=== PATIENT | female | born 1960 | race Caucasian/White ===

== ENCOUNTER → 2018-09-04 09:45 | Outpatient (CLI) | payer OTHER, MEDICAID, SELFPAY ==
[2018-09-04 10:36] LABS: Alanine Aminotransferase 28 IU/L (9-52); Albumin 4.4 g/dL (3.5-5.0); Albumin Globulin Ratio 1.7 (1.0-2.8); Alkaline Phosphatase 73 U/L (38-126); Aspartate Aminotransferase 21 IU/L (14-36); BUN Creatinine Ratio 34.3 (6-22); Bilirubin Total 0.8 mg/dL (0.2-1.3); Blood Urea Nitrogen 24 mg/dL (7-17); Calcium 9.9 mg/dL (8.4-10.2); Carbon Dioxide 29 mmol/L (22-32); Chloride 104 mmol/L (98-107); Cholesterol 210 mg/dL (140-199); Estimated Glomerular Filt Rate > 60.0 mL/min (>60); Globulin 2.6 g/dL (1.7-4.1); Glucose 105 mg/dL (80-110); HDL Cholesterol 77 mg/dL (40-60); HEMOLYSIS < 15 (0-50); LDL Cholesterol Calculated 106 mg/dL (<100); Potassium 4.8 mmol/L (3.4-5.1); Sodium 144 mmol/L (137-145); Triglycerides 134 mg/dL (35-150); Uric Acid 4.3 mg/dL (2.5-6.2)
== END ==
PROVIDERS: PCP Physician Assistant; Visit Provider Physician Assistant
DX: E78.5 Hyperlipidemia, unspecified (principal); M10.9 Gout, unspecified
CPT/HCPCS: 36415; 80053; 80061; 84550

== ENCOUNTER → 2019-07-29 11:55 | Outpatient (CLI) | payer OTHER, SELFPAY ==
--- NOTE | 2019-07-29 11:56 | DI.RAD.S_ITS ---
PROCEDURE: XR ANKLE RT MIN 3V INDICATIONS: right foot and ankle pain after fall TECHNIQUE: 3 views of the ankle were acquired. COMPARISON: , [facility], XR FOOT RT MIN 3V, 07/29/2019, 11:58. , [facility], ANKLE 3 VIEWS RIGHT, 07/17/2017, 8:31. FINDINGS: Bones: Minimally displaced distal fibular tip fracture. Soft tissues: Lateral malleolar soft tissue edema. IMPRESSION: Minimally displaced distal fibular tip fracture with adjacent edema. Dictated by: Tanika Rodriguez M.D. on 07/29/2019 at 12:17 Approved by: Tanika Rodriguez M.D. on 07/29/2019 at 12:18
--- NOTE | 2019-07-29 11:56 | DI.RAD.S_ITS ---
PROCEDURE: XR FOOT RT MIN 3V INDICATIONS: r foot pain TECHNIQUE: 3 views of the foot were acquired. COMPARISON: [facility], CR, ANKLE 3 VIEWS RIGHT, 07/17/2017, 8:31. [facility], CR, XR ANKLE RT MIN 3V, 07/29/2019, 11:57. FINDINGS: Bones: Distal fibular tip fracture is better visualized on ankle x-ray of 07/29/19. Soft tissues: Mild lateral malleolar soft tissue edema. Achilles tendon appears normal. IMPRESSION: Please see x-ray report for further details of the distal fibular tip fracture. Dictated by: Tanika Rodriguez M.D. on 07/29/2019 at 12:19 Approved by: Tanika Rodriguez M.D. on 07/29/2019 at 12:20
== END ==
PROVIDERS: PCP Physician Assistant; Visit Provider Physician Assistant
DX: M25.571 Pain in right ankle and joints of right foot (principal); M79.671 Pain in right foot; S82.831A Other fracture of upper and lower end of right fibula, initial encounter for closed fracture; W19.XXXA Unspecified fall, initial encounter
CPT/HCPCS: 73610; 73630

== ENCOUNTER → 2020-01-01 10:08 | Outpatient (CLI) | payer OTHER, SELFPAY ==
[2020-01-01 11:41] LABS: Add Manual Diff / Slide Review NO; Basophils Absolute Auto 0 /uL (0-100); Basophils Percent Auto 0.7 % (0-2); Eosinophils Absolute Auto 200 /uL (0-450); Eosinophils Percent Auto 4.5 % (2-4); Hematocrit 35.9 % (36-46); Hemoglobin 12.3 g/dL (12.0-16.0); Lymphocytes Absolute Auto 1600 /uL (1100-4500); Lymphocytes Percent Auto 35.7 % (25-40); Mean Corpuscular HGB Conc 34.2 % (30-36); Mean Corpuscular Volume 87.7 fL (80-100); Monocytes Absolute Auto 300 /uL (0-900); Monocytes Percent Auto 7.8 % (3-14); Neutrophils Absolute Auto 2300 /uL (1500-7000); Neutrophils Percent Auto 51.3 % (50-75); Platelet Count 208 X10^3/uL (150-400); Red Blood Cell Count 4.09 X10^6/uL (4.0-5.2); Red Cell Distribution Width 13.3 % (11.6-14.8); White Blood Cell Count 4.4 X10^3/uL (4.5-11.0)
[2020-01-01 11:49] LABS: Alanine Aminotransferase 20 IU/L (<35); Albumin 4.6 g/dL (3.5-5.0); Albumin Globulin Ratio 1.5 (1.0-2.8); Alkaline Phosphatase 87 U/L (38-126); Aspartate Aminotransferase 25 IU/L (14-36); Bilirubin Total 0.8 mg/dL (0.2-1.3); Blood Urea Nitrogen 21 mg/dL (7-17); Calcium 9.6 mg/dL (8.4-10.2); Carbon Dioxide 26 mmol/L (22-32); Chloride 104 mmol/L (98-107); Cholesterol 235 mg/dL (140-199); Estimated Glomerular Filt Rate > 60.0 mL/min (>60); Globulin 3.1 g/dL (1.7-4.1); Glucose 107 mg/dL (80-110); HDL Cholesterol 71 mg/dL (40-60); HEMOLYSIS < 15 (0-50); LDL Cholesterol Calculated 141 mg/dL (<100); Potassium 3.8 mmol/L (3.4-5.1); Sodium 140 mmol/L (137-145); Total Protein 7.7 g/dL (6.3-8.2); Triglycerides 113 mg/dL (35-150)
== END ==
PROVIDERS: PCP Nurse Practitioner Family; Referring Provider Nurse Practitioner Family; Visit Provider Nurse Practitioner Family
DX: Z00.00 Encounter for general adult medical examination without abnormal findings (principal); Z13.0 Encounter for screening for diseases of the blood and blood-forming organs and certain disorders involving the immune mechanism; Z13.1 Encounter for screening for diabetes mellitus; Z13.220 Encounter for screening for lipoid disorders; Z13.6 Encounter for screening for cardiovascular disorders; M10.9 Gout, unspecified
CPT/HCPCS: 36415; 80053; 80061; 84550; 85025

== ENCOUNTER → 2020-05-06 12:40 | Outpatient (CLI) | payer OTHER, SELFPAY | PROVIDERS: PCP Nurse Practitioner Family; Referring Provider Nurse Practitioner Family; Visit Provider Nurse Practitioner Family | DX: Z13.820 Encounter for screening for osteoporosis (principal); M85.852 Other specified disorders of bone density and structure, left thigh; Z78.0 Asymptomatic menopausal state; Z87.81 Personal history of (healed) traumatic fracture; Z82.62 Family history of osteoporosis | CPT/HCPCS: 77080 ==

== ENCOUNTER → 2020-07-01 10:11 | Outpatient (CLI) | payer OTHER, SELFPAY ==
--- NOTE | 2020-07-01 | DI.MG.S_ITS ---
BILATERAL DIGITAL SCREENING MAMMOGRAM 3D/2D WITH CAD: 07/01/2020 CLINICAL: Routine screening. Comparison is made to exams dated: 05/17/2017 mammogram, 01/21/2015 mammogram, and 01/16/2014 mammogram - [facility]. The tissue of both breasts is heterogeneously dense. This may lower the sensitivity of mammography. Current study was also evaluated with a Computer Aided Detection (CAD) system. No significant masses, calcifications, or other findings are seen in either breast. There has been no significant interval change. IMPRESSION: NEGATIVE There is no mammographic evidence of malignancy. A 1 year screening mammogram is recommended. This exam was interpreted at Station ID: [id number]. NOTE: For mammograms, a report in lay terms will be sent to the patient. Approximately 15% of breast malignancies will not be visualized mammographically. In the management of a palpable breast mass, a negative mammogram must not discourage biopsy of a clinically suspicious lesion. Electronically Signed By: Efren dior/temitope:07/01/2020 14:28:29 letter sent: Normal Exam ACR BI-RADS Category 1: Negative [id number]
== END ==
PROVIDERS: PCP Nurse Practitioner Family; Referring Provider Nurse Practitioner Family; Visit Provider Nurse Practitioner Family
DX: Z12.31 Encounter for screening mammogram for malignant neoplasm of breast (principal)
CPT/HCPCS: 77063; 77067

== ENCOUNTER → 2020-07-29 15:06 | Outpatient (CLI) | payer OTHER, SELFPAY ==
[2020-07-30 16:55] LABS: COVID19 Sendout Not Detected (Not Detected)
== END ==
PROVIDERS: PCP Nurse Practitioner Family; Visit Provider Physician Assistant
DX: Z11.59 Encounter for screening for other viral diseases (principal)
CPT/HCPCS: 87635

== ENCOUNTER → 2021-02-24 12:20 | Outpatient (CLI) | payer OTHER, SELFPAY ==
[2021-02-24] MEDS: COVID-19 VACC #1, MRNA(MOD) 100 MCG/0.5 ML VIAL IM (12:28)
== END ==
PROVIDERS: PCP Nurse Practitioner Family; Visit Provider Internal Medicine
DX: Z23 Encounter for immunization (principal)
CPT/HCPCS: 0011A; 91301

== ENCOUNTER → 2021-03-24 12:30 | Outpatient (CLI) | payer OTHER, SELFPAY ==
[2021-03-24] MEDS: COVID-19 VACC #2, MRNA(MOD) 100 MCG/0.5 ML VIAL IM (12:38)
== END ==
PROVIDERS: PCP Nurse Practitioner Family; Visit Provider Internal Medicine
DX: Z23 Encounter for immunization (principal)
CPT/HCPCS: 0012A; 91301

== ENCOUNTER → 2021-06-22 15:31 | Outpatient (CLI) | payer OTHER, SELFPAY ==
[2021-06-22 16:11] LABS: Alanine Aminotransferase 17 IU/L (<35); Albumin 4.2 g/dL (3.5-5.0); Albumin Globulin Ratio 1.5 (1.0-2.8); Alkaline Phosphatase 90 U/L (38-126); Aspartate Aminotransferase 23 IU/L (14-36); Bilirubin Total 0.5 mg/dL (0.2-1.3); Blood Urea Nitrogen 27 mg/dL (7-17); Calcium 9.3 mg/dL (8.4-10.2); Carbon Dioxide 27 mmol/L (22-32); Chloride 106 mmol/L (98-107); Cholesterol 200 mg/dL (140-199); Estimated Glomerular Filt Rate > 60.0 mL/min (>60); Globulin 2.8 g/dL (1.7-4.1); Glucose 85 mg/dL (80-110); HDL Cholesterol 68 mg/dL (40-60); HEMOLYSIS < 15 (0-50); LDL Cholesterol Calculated 90 mg/dL (<100); Potassium 3.9 mmol/L (3.4-5.1); Sodium 141 mmol/L (137-145); Triglycerides 210 mg/dL (35-150); Uric Acid 4.1 mg/dL (2.5-6.2)
[2021-06-22 16:25] LABS: Vitamin D 25 Hydroxy (D3) 36.1 ng/mL (30.0-100.0)
== END ==
PROVIDERS: PCP Nurse Practitioner Family; Referring Provider Nurse Practitioner Family; Visit Provider Nurse Practitioner Family
DX: Z00.00 Encounter for general adult medical examination without abnormal findings (principal); E78.2 Mixed hyperlipidemia; M85.80 Other specified disorders of bone density and structure, unspecified site; M10.9 Gout, unspecified
CPT/HCPCS: 36415; 80053; 80061; 82306; 84550

== ENCOUNTER → 2021-08-25 09:45 | Outpatient (CLI) | payer OTHER, SELFPAY ==
--- NOTE | 2021-08-25 09:46 | DI.MG.S_ITS ---
BILATERAL DIGITAL SCREENING MAMMOGRAM 3D/2D WITH CAD: 08/25/2021 CLINICAL: Routine screening. Comparison is made to exams dated: 07/01/2020 mammogram, 05/17/2017 mammogram, and 01/21/2015 mammogram - [facility]. The tissue of both breasts is heterogeneously dense. This may lower the sensitivity of mammography. Current study was also evaluated with a Computer Aided Detection (CAD) system. There is irregular equal density architectural distortion with an indistinct margin in the right breast posterior depth central to the nipple seen on the craniocaudal view only. No other significant masses, calcifications, or other findings are seen in either breast. IMPRESSION: INCOMPLETE: NEEDS ADDITIONAL IMAGING EVALUATION The irregular equal density architectural distortion in the right breast is indeterminate. Mediolateral and spot compression views as well as additional views with possible ultrasound are recommended. This exam was interpreted at Station ID: [id number]. NOTE: For mammograms, a report in lay terms will be sent to the patient. Approximately 15% of breast malignancies will not be visualized mammographically. In the management of a palpable breast mass, a negative mammogram must not discourage biopsy of a clinically suspicious lesion. Electronically Signed By: Miguel Angel harvey/temitope:08/25/2021 11:24:17 letter sent: Additional Imaging Needed ACR BI-RADS Category 0: Incomplete [id number]
== END ==
PROVIDERS: PCP Nurse Practitioner Family; Referring Provider Nurse Practitioner Family; Visit Provider Nurse Practitioner Family
DX: Z12.31 Encounter for screening mammogram for malignant neoplasm of breast (principal); R92.8 Other abnormal and inconclusive findings on diagnostic imaging of breast
CPT/HCPCS: 77063; 77067

== ENCOUNTER → 2021-10-27 11:54 | Outpatient (CLI) | payer OTHER, SELFPAY ==
--- NOTE | 2021-10-27 11:55 | DI.MG.S_ITS ---
UNILATERAL RIGHT DIGITAL DIAGNOSTIC MAMMOGRAM 3D/2D WITH ADDITIONAL VIEWS: 10/27/2021 CLINICAL: Additional evaluation requested from prior study. Comparison is made to exams dated: 08/25/2021 mammogram, 07/01/2020 mammogram, and 05/17/2017 mammogram - [facility]. The tissue of right breast is heterogeneously dense. This may lower the sensitivity of mammography. There is irregular equal density architectural distortion in the right breast posterior depth central to the nipple seen on the craniocaudal view only. This is seen in additional views. This is not significantly changed. No other significant masses or calcifications are seen in the breast. IMPRESSION: SUSPICIOUS OF MALIGNANCY The architectural distortion in the right breast is suspicious of malignancy. A stereotactic biopsy is recommended. This exam was interpreted at Station ID: [id number]. NOTE: For mammograms, a report in lay terms will be sent to the patient. Approximately 15% of breast malignancies will not be visualized mammographically. In the management of a palpable breast mass, a negative mammogram must not discourage biopsy of a clinically suspicious lesion. Electronically Signed By: Saran Angulo M.D. jr/:10/27/2021 12:18:18 letter sent: Biopsy Required ACR BI-RADS Category 4: Suspicious abnormality [id number]
== END ==
PROVIDERS: PCP Nurse Practitioner Family; Referring Provider Nurse Practitioner Family; Visit Provider Nurse Practitioner Family
DX: R92.8 Other abnormal and inconclusive findings on diagnostic imaging of breast (principal); N64.89 Other specified disorders of breast
CPT/HCPCS: 77065; G0279

== ENCOUNTER → 2022-05-16 13:13 | Outpatient (CLI) | payer OTHER, SELFPAY ==
--- NOTE | 2022-05-16 13:16 | DI.RAD.S_ITS ---
PROCEDURE: XR LUMBAR SPINE 2-3V INDICATIONS: Low back pain TECHNIQUE: 3 views of the lumbar spine were acquired. COMPARISON: None. FINDINGS: Bones: 5 [id number] vertebrae are present. There is normal bony alignment. No vertebral body compression fractures. There is diffuse intervertebral disc space narrowing, endplate sclerosis and osteophytosis. Soft tissues: Overlying bowel gas pattern is normal. No suspicious soft tissue calcifications. IMPRESSION: Mild degenerative change. No compression deformities. Dictated by: Kassie Sellers M.D. on 05/16/2022 at 13:51 Approved by: Kassie Sellers M.D. on 05/16/2022 at 13:52
== END ==
PROVIDERS: PCP Nurse Practitioner Family; Referring Provider Physician Assistant; Visit Provider Physician Assistant
DX: M47.816 Spondylosis without myelopathy or radiculopathy, lumbar region (principal); M54.50 Low back pain, unspecified
CPT/HCPCS: 72100

== ENCOUNTER → 2022-12-29 10:11 | Outpatient (CLI) | payer OTHER, SELFPAY ==
[2022-12-29 10:58] LABS: Add Manual Diff / Slide Review NO; Basophils Absolute Auto 0 /uL (0-100); Basophils Percent Auto 0.9 % (0-2); Eosinophils Absolute Auto 200 /uL (0-450); Eosinophils Percent Auto 3.9 % (2-4); Hematocrit 36.7 % (36-46); Hemoglobin 12.4 g/dL (12.0-16.0); Lymphocytes Absolute Auto 1400 /uL (1100-4500); Lymphocytes Percent Auto 34.4 % (25-40); Mean Corpuscular HGB Conc 33.7 % (30-36); Mean Corpuscular Hemoglobin 30.1 PG (26-34); Mean Corpuscular Volume 89.3 fL (80-100); Monocytes Absolute Auto 300 /uL (0-900); Monocytes Percent Auto 8.2 % (3-14); Neutrophils Absolute Auto 2100 /uL (1500-7000); Neutrophils Percent Auto 52.6 % (50-75); Platelet Count 206 X10^3/uL (150-400); Red Blood Cell Count 4.11 X10^6/uL (4.0-5.2); Red Cell Distribution Width 14.2 % (11.6-14.8)
[2022-12-29 11:06] LABS: Hemoglobin A1C% w Est Avg Glu 5.5 % (4.0-6.0)
[2022-12-29 11:11] LABS: Alanine Aminotransferase 31 IU/L (<35); Albumin 4.5 g/dL (3.5-5.0); Albumin Globulin Ratio 1.4 (1.0-2.8); Alkaline Phosphatase 74 U/L (38-126); Aspartate Aminotransferase 32 IU/L (14-36); BUN Creatinine Ratio 34.3 (6-22); Blood Urea Nitrogen 23 mg/dL (7-17); Calcium 9.4 mg/dL (8.4-10.2); Carbon Dioxide 28 mmol/L (22-32); Chloride 103 mmol/L (98-107); Cholesterol 243 mg/dL (140-199); Estimated Glomerular Filt Rate > 60 mL/min (>60); Globulin 3.2 g/dL (1.7-4.1); Glucose 106 mg/dL (80-110); HDL Cholesterol 86 mg/dL (40-60); HEMOLYSIS < 15 (0-50); LDL Cholesterol Calculated 137 mg/dL (<100); Potassium 3.7 mmol/L (3.4-5.1); Sodium 141 mmol/L (137-145); Total Protein 7.7 g/dL (6.3-8.2); Triglycerides 101 mg/dL (35-150); Uric Acid 3.3 mg/dL (2.5-6.2)
[2022-12-29 11:29] LABS: Free T3, Triiodothyronine Free 4.28 pg/mL (2.77-5.27); Free T4, Direct Thyroxine 1.12 ng/dL (0.78-2.19)
[2022-12-29 11:43] LABS: Thyroid Stimulating Hormone 2.43 uIU/mL (0.47-4.68)
[2022-12-31 08:26] LABS: Insulin Level Total 6.5 uIU/mL (2.6-24.9)
== END ==
PROVIDERS: PCP Family Medicine; Referring Provider Family Medicine; Visit Provider Family Medicine
DX: E78.2 Mixed hyperlipidemia (principal); M1A.09X0 Idiopathic chronic gout, multiple sites, without tophus (tophi); R73.09 Other abnormal glucose; D64.9 Anemia, unspecified; M10.9 Gout, unspecified
CPT/HCPCS: 36415; 80053; 80061; 83036; 83525; 84439; 84443; 84481; 84550; 85025

== ENCOUNTER → 2023-04-06 15:59 | Outpatient (CLI) | payer OTHER, SELFPAY | PROVIDERS: PCP Family Medicine; Referring Provider Family Medicine; Visit Provider Family Medicine | DX: M1A.09X0 Idiopathic chronic gout, multiple sites, without tophus (tophi) (principal) | CPT/HCPCS: 36415; 84550 ==

== ENCOUNTER 2023-05-20 16:16 | Emergency (ER) | payer OTHER, SELFPAY ==
[2023-05-20 16:18] VITALS: BP 150/70; PULSE 78; RESP 16; TEMP 37; O2SAT 98; BMI 28.7
--- NOTE | 2023-05-20 16:24 | DI.RAD.S_ITS ---
PROCEDURE: XR SHOULDER LT MIN 2V INDICATIONS: fall with pain TECHNIQUE: 3 views of the shoulder were acquired. COMPARISON: None. FINDINGS: Bones: Degenerative changes of the left acromioclavicular joint and glenohumeral joint. No fractures or dislocations. No suspicious bony lesions. Visualized ribs appear intact. Soft tissues: No suspicious soft tissue calcifications. IMPRESSION: No acute abnormality of the left shoulder. Dictated by: Richar Mcqueen M.D. on 05/20/2023 at 16:29 Approved by: Richar Mcqueen M.D. on 05/20/2023 at 16:30
--- NOTE | 2023-05-20 16:26 | DI.CT.S_ITS ---
PROCEDURE: CT FACIAL BONES WO CON INDICATIONS: fall with injury TECHNIQUE: Noncontrast 2.5 mm thick axial images acquired from the mandible through the frontal sinuses, with coronal and sagittal reformatting. For radiation dose reduction, the following was used: automated exposure control, adjustment of mA and/or kV according to patient size. COMPARISON: None. FINDINGS: Image quality: Excellent. Bones and teeth: Orbital owens are intact. Sinus owens show no fracture or deformity. Nasal bones and septum are intact. Visualized portions of the mandible demonstrate no fractures or subluxation. Zygomatic arches are intact. Pterygoid plates are intact. Visualized portions of the skull base and auditory canals are intact. Sinuses: Paranasal sinuses are aerated, without fluid levels, mucosal thickening, or mucoceles. Mastoid air cells are aerated. Septal deviation to the left with spurring. Soft tissues: No edema, masses, or fluid collections. No enlarged lymph nodes. No soft tissue lacerations or debris. Vascular: Visualized vascular structures appear normal in the absence of contrast. Bony vascular foramina and canals are intact. IMPRESSION: No acute traumatic abnormality of the facial bones. Dictated by: Richar Mcqueen M.D. on 05/20/2023 at 16:34 Approved by: Richar Mcqueen M.D. on 05/20/2023 at 16:36
--- NOTE | 2023-05-20 16:26 | DI.CT.S_ITS ---
PROCEDURE: CT HEAD/BRAIN WO CON INDICATIONS: fall with injury TECHNIQUE: Noncontrast 4.5 mm thick angled axial sections acquired from the foramen magnum to the vertex, with coronal and sagittal reformats. For radiation dose reduction, the following was used: automated exposure control, adjustment of mA and/or kV according to patient size. COMPARISON: None. FINDINGS: Image quality: Excellent. CSF spaces: Basal cisterns are patent. No extra-axial fluid collections. Ventricles are normal in size and shape. Brain: No midline shift. No intracranial masses or hemorrhage. Perez-white matter interface is normal. Skull and face: Soft tissue swelling and hematoma over the right frontal bone. Sinuses: Visualized sinuses and mastoids are clear. IMPRESSION: 1. No acute intracranial abnormality. 2. Soft tissue swelling and hematoma over the right frontal bone. Dictated by: Richar Mcqueen M.D. on 05/20/2023 at 16:37 Approved by: Richar Mcqueen M.D. on 05/20/2023 at 16:38
--- NOTE | 2023-05-20 17:59 | ED_ITS ---
HPI - Fall General Chief Complaint: Fall Stated Complaint: Arm inj Time Seen by Provider: 05/20/23 17:43 Source: patient Mode of arrival: Ambulatory History of Present Illness HPI Narrative: 62-year-old female nonsmoker without significant medical history presents with multiple family members in the chief complaint of injury suffered as a consequence of a ground level fall yesterday. She states that she admits to have consumed few adult beverages and was walking up some stairs when she tripped and fell striking her left shoulder and right side of her face. She denies loss of consciousness, nausea or vomiting. She denies neck or back pain. She has no chest pain or shortness of breath. She denies loss of consciousness with the use of blood thinners. She has full recall of the event. She has increasing bruising about her right eye and blurred vision which appears to be secondary to swelling has she has clear vision when she holds open her lids. She has pain in her left shoulder and complains of decreased range of motion secondary to that pain. She denies any numbness, tingling or weakness. She has no pain in her elbow or wrist Related Data Home Medications Medication Instructions Recorded Confirmed azelastine 137 mcg (0.1 %) nasal 1 spray intranasal ONCE PRN 06/19/19 06/14/22 spray aerosol desonide 0.05 % topical cream 1 applictn topical QID PRN skin 06/19/19 06/14/22 irritation CBD topical 12/25/19 06/14/22 dupilumab 300 mg/2 mL subcutaneous 300 mg SUBCUT Q2W 05/27/20 06/14/22 syringe ([employer]) Previous Rx's Medication Instructions Recorded triamcinolone acetonide 0.5 % 0.5 % topical TIDP PRN ##60 07/15/16 topical ointment [Sauna therapy] #30 ea 08/03/22 massage therapy #1 ea 08/03/22 cholecalciferol (vitamin D3) 25 25 mcg PO DAILY #90 caps 09/23/22 mcg (1,000 unit) capsule ketoconazole 2 % shampoo See Rx Instructions .Route 11/22/22 .COMPLEX #120 mL allopurinol 100 mg tablet 200 mg PO DAILY #180 tabs 12/20/22 cod liver oil 10 ml PO DAILY #473 mL 12/20/22 cetirizine 10 mg tablet 10 mg PO DAILY #90 tabs 03/24/23 hydroxyzine HCl 25 mg tablet See Rx Instructions .Route 04/04/23 .COMPLEX #180 tabs naproxen 500 mg tablet See Rx Instructions .Route 04/28/23 .COMPLEX #270 tabs hydrocodone 5 mg-acetaminophen 325 1 tab PO Q4-6H PRN pain #10 tabs 05/20/23 mg tablet ondansetron 4 mg disintegrating 4 mg PO TID-QID PRN nausea and 05/20/23 tablet vomiting #10 tabs Allergies Allergy/AdvReac Type Severity Reaction Status Date / Time cat dander [CAT DANDER] Allergy Severe RASH, Verified 05/20/23 16:18 SNEEZING AND RED EYES dog dander [DOG DANDER] Allergy Severe RASH, Verified 05/20/23 16:18 SNEEZING AND RED EYES grass pollen-perennial rye, Allergy Severe RASH, Verified 05/20/23 16:18 standar SNEEZING [GRASS POLL-PERENNIAL AND RED RYE,STD] EYES tree and shrub pollen Allergy Severe ITCHY Verified 05/20/23 16:18 [TREE AND SHRUB POLLEN] WATERY EYES, RASH AND NASAL CONGESTION Review of Systems Review of Systems Narrative: GENERAL: See HPI. HEENT: See HPI RESPIRATORY: Denies dyspnea, cough, wheezing, hemoptysis, sputum. CARDIOVASCULAR: Denies chest pain, palpitations, orthopnea, edema, GASTROINTESTINAL: Denies nausea, vomiting, abdominal pain, diarrhea, constipation, melena. : Denies dysuria, frequency, incontinence, hematuria, urinary retention. MUSCULOSKELETAL: See HPI SKIN: Denies rash, skin lesions, or other NEUROLOGIC: Denies weakness, headache, numbness, change in speech, confusion, seizures, incoordination. PSYCHIATRIC: No concerning psychosocial issues. 12 point review of systems is negative except for those stated above Patient History Medical History Abnormal mammogram of right breast Degenerative disc disease Encounter for screening laboratory testing for COVID-19 virus Gastroenteritis Gout (05/04/15) Hearing loss of both ears (2015) History of fibula fracture (07/2019) History of hay fever Mixed hyperlipidemia Nerve damage of foot Osteoarthritis, multiple sites Osteopenia after menopause Seasonal allergic rhinitis due to pollen Vitamin D deficiency Family History Father Hyperlipidemia Mother Hyperlipidemia Hypothyroidism Social History Smoking Status: Never smoker second hand exposure: Yes (occasionally, once a year for 10 days while on a fishing trip.) alcohol intake: current (2 drinks per day ) substance use type: marijuana (occasional for sleep ) Smoking Status: Never smoker alcohol intake frequency: a few times a week Alcohol type: wine and other Substance Use Type: does not use Exam Narrative Exam Narrative: GENERAL: [62] year old patient appears stated age. Well-developed patient, in mild distress. GCS 15 HEAD: Bruising around right brow involving both upper and lower lid. Otherwise no contusion, abrasion or laceration, no evidence of depressed skull fracture EYES: Impressive amount of swelling and ecchymosis of right upper and lower lid, however when lids are retracted she has no vision change and states she can see clearly. There is no hyphema and no evidence of fluorescein uptake under UV lamp. Pupils equal round and reactive. Extraocular motions intact. No scleral icterus. No injection or drainage. ENT: Nose without bleeding, purulent drainage. Throat without erythema, tonsillar hypertrophy or exudate. Airway patent. NECK: Trachea midline. Non tender CARDIOVASCULAR: Regular rate and rhythm without murmurs, gallops, or rubs. RESPIRATORY: Clear to auscultation. Breath sounds equal bilaterally. No wheezes, rales, or rhonchi. GASTROINTESTINAL: Abdomen soft, non-tender, nondistended. EXTREMITIES: Patient has full but painful range of motion at the left shoulder BACK: Nontender without deformity or crepitance. No flank tenderness. NEURO: AOx3. SKIN: No rash or erythema of visible areas Initial Vital Signs Initial Vital Signs: Vital Signs Temperature 98.6 F 05/20/23 16:18 Pulse Rate 78 05/20/23 16:18 Respiratory Rate 16 05/20/23 16:18 Blood Pressure 150/70 H 05/20/23 16:18 Pulse Oximetry 98 05/20/23 16:18 Oxygen Delivery Method Room Air 05/20/23 16:18 Procedures Orthopedic Splinting/Casting Injury #1: Side: left Upper Extremity Injury Location: shoulder Upper Extremity Immobilizer: sling/shoulder immobilizer Post splinting neuro exam: intact Post splinting vascular exam: intact Placed by: Nursing Course Orders Ordered: Discontinued Medications Hydrocodone Bitart/Acetaminophen (Hydrocodone/Acet 5/325 Prepack) 1 bottle MISC SEEINSTR ONE Stop: 05/20/23 19:14 Last Admin: 05/20/23 19:41 Dose: 1 bottle Documented By: ABEBA Fluorescein Sodium (Fluorescein 1 Mg Strip) 1 mg EYE-LEFT NOW ONE Stop: 05/20/23 18:05 Last Admin: 05/20/23 19:03 Dose: 1 mg Documented By: NR Ondansetron HCl (Ondansetron 4 Mg Odt Prepack) 1 bottle MISC SEEINSTR ONE Stop: 05/20/23 19:14 Last Admin: 05/20/23 19:41 Dose: 1 bottle Documented By: ABEBA Proparacaine HCl (Proparacaine 0.5% Ophth Anna) 1 drops EYE-LEFT NOW ONE Stop: 05/20/23 18:05 Last Admin: 05/20/23 19:03 Dose: 1 drop Documented By: ISABELLA Vital Signs Vital signs: Vital Signs - 8 hr 05/20/23 19:43 Temperature 97.7 F Pulse Rate 76 Respiratory Rate 16 Blood Pressure 128/74 Pulse Oximetry 98 Oxygen Delivery Method Room Air MDM - Fall MDM Narrative Medical decision making narrative: [62] year old patient presents with injuries after ground level Multiple etiologies for patient's symptoms considered including, but not limited to: [Skull fracture versus orbital fracture versus intracranial versus shoulder fracture versus other] Prior Charts reviewed in our EMR Primary Historian: patient Imaging reviewed: CT of head and facial bones without fracture or intracranial hemorrhage. Left shoulder without fracture dislocation Patient's symptoms improved over duration of stay with above-stated therapies. Patient with impressive bruising around her right eye no ocular involvement, once lids are retracted she has full unaffected vision, normal funduscopic, no dye uptake, no evidence of fracture of shoulder. Patient splinted and feeling much better. Appropriate for discharge Findings and discharge diagnosis discussed with patient/family followed by verbalization of understanding Return precautions discussed with patient/family whom verbalize understanding of diagnosis and plan Discharge Plan Departure Patient Disposition: Home Clinical Impression: Shoulder sprain Qualifiers: Encounter type: initial encounter Shoulder sprain type: unspecified sprain Laterality: left Qualified Code(s): S43.402A - Unspecified sprain of left shoulder joint, initial encounter Contusion of face Qualifiers: Encounter type: initial encounter Qualified Code(s): S00.83XA - Contusion of other part of head, initial encounter Instructions: How to Prevent Falls Activity Restrictions/Additional Instructions: *You have been diagnosed with [minor injuries as a consequence of a ground level fall] *What to do: *Please continue to take your regular medications as directed. [ x] New medication prescriptions sent to your pharmacy: [ [facility]] [ ] New medication written as a paper prescription [ ] No new medications given *Please follow up with your primary care provider in 2-3 days, call for an appointment. Let them know you were seen in the Emergency Department and that we ask that you be seen in follow up. We will electronically transmit a record of today's note if your PCP is in our system *Return to Emergency Department if you should have any new, worsening or concerning symptoms, such as [fever greater than 101 F, shaking chills, worsening pain, persistent vomiting or other bothersome symptoms] Prescriptions: New hydrocodone-acetaminophen 5-325 mg tablet 1 tab PO Q4-6H PRN (Reason: pain) Qty: 10 0RF ondansetron 4 mg tablet,disintegrating 4 mg PO TID-QID PRN (Reason: nausea and vomiting) Qty: 10 0RF No Action triamcinolone acetonide 0.5 % ointment 0.5 % Topical TIDP PRNQty: 60 1RF (DME) massage therapy 0 .Route .MEDSUPPLY Qty: 1 12RF Dose Instruction: As directed Rx Instructions: One session every 2 weeks as needed to help control pain due to gout and osteoarthritis. (DME) [Sauna therapy] 0 .Route .MEDSUPPLY Qty: 30 12RF Dose Instruction: As directed Rx Instructions: 30 minutes per session 20 sessions every 4-6 weeks for a total of 240 sessions. cholecalciferol (vitamin D3) 25 mcg (1,000 unit) capsule 25 mcg PO DAILY Qty: 90 0RF Rx Instructions: APPOINTMENT DUE FOR FURTHER REFILLS 09/23/22 ketoconazole 2 % shampoo See Rx Instructions .ROUTE .COMPLEX Qty: 120 1RF Dose Instruction: APPLY TWICE DAILY FOR 2 WEEKS THEN NEEDED 3 TIMES A WEEK Rx Instructions: APPLY TWICE DAILY FOR 2 WEEKS THEN NEEDED 3 TIMES A WEEK cetirizine 10 mg tablet 10 mg PO DAILY Qty: 90 0RF hydroxyzine HCl 25 mg tablet See Rx Instructions .ROUTE .COMPLEX Qty: 180 0RF Dose Instruction: TAKE 1-2 TABLETS AT BEDTIME NEEDED FOR ALLERGIES Rx Instructions: TAKE 1-2 TABLETS AT BEDTIME NEEDED FOR ALLERGIES naproxen 500 mg tablet See Rx Instructions .ROUTE .COMPLEX Qty: 270 0RF Dose Instruction: TAKE 1 TABLET BY MOUTH 2-3 TIMES A DAY Rx Instructions: TAKE 1 TABLET BY MOUTH 2-3 TIMES A DAY. azelastine 137 mcg (0.1 %) aerosol,spray 1 spray NASAL ONCE PRN desonide 0.05 % cream 1 applictn TOP QID PRN (Reason: skin irritation) Dupixent Syringe 300 mg/2 mL syringe 300 mg SUBCUT Q2W CBD topical cod liver oil Oil 10 ml PO DAILY Qty: 473 0RF allopurinol 100 mg tablet 200 mg PO DAILY Qty: 180 3RF Referrals: Antonia Mancilla DO [Primary Care Provider] - Stand Alone Forms: Patient Portal/API
[2023-05-20] MEDS: FLUORESCEIN 1 MG STRIP EYE-LEFT (19:03)
[2023-05-20] MEDS: PROPARACAINE 0.5% OPHTH SOL 1 DROPS EYE-LEFT (19:03)
[2023-05-20] MEDS: HYDROCODONE/ACET 5/325 PREPACK 1 BOTTLE MISC (19:41)
[2023-05-20] MEDS: ONDANSETRON 4 MG ODT PREPACK 1 BOTTLE MISC (19:41)
[2023-05-20 19:43] VITALS: BP 128/74; PULSE 76; RESP 16; TEMP 36.5; O2SAT 98
== END 2023-05-20 19:43 | disposition home or self-care (01) ==
PROVIDERS: Emergency Provider Emergency Medicine; PCP Family Medicine
DX: S43.402A Unspecified sprain of left shoulder joint, initial encounter (principal); S00.83XA Contusion of other part of head, initial encounter; W01.0XXA Fall on same level from slipping, tripping and stumbling without subsequent striking against object, initial encounter
CPT/HCPCS: 70450; 70486; 73030; 99283; 99284

== ENCOUNTER → 2023-07-21 10:55 | Outpatient (CLI) | payer MEDICARE, SELFPAY ==
--- NOTE | 2023-07-21 11:16 | DI.MG.S_ITS ---
BILATERAL DIGITAL DIAGNOSTIC MAMMOGRAM 3D/2D: 07/21/2023 CLINICAL: Right late 6 month follow up post stereotactic biopsy, due for bilateral routine. Comparison is made to exams dated: 11/24/2021 stereotactic biopsy - [facility], 10/27/2021 mammogram, 08/25/2021 mammogram, 07/01/2020 mammogram, and 05/17/2017 mammogram - [facility]. Both breasts are heterogeneously dense, which may obscure small masses (category c / 51-75% glandular tissue). There is architectural distortion in the right breast posterior depth central to the nipple seen on the craniocaudal view only. This is less prominent and correlates with the prior stereotactic biopsy. No other significant masses, calcifications, or other findings are seen in either breast. IMPRESSION: INCOMPLETE: NEEDS ADDITIONAL IMAGING EVALUATION The architectural distortion in the right breast is less prominent. Prior benign biopsy. A second look ultrasound is recommended and will immediately follow. Based on the Tyrer Cuzick model (a risk assessment model) the patient's lifetime risk is 10.6% and her 10 year risk is 4.9%. According to the ACR, ACS, and NCCN guidelines, an annual breast MRI exam along with mammogram is recommended if the patient's lifetime risk is 20% or greater. This exam was interpreted at Station ID: [id number]. NOTE: For mammograms, a report in lay terms will be sent to the patient. Approximately 15% of breast malignancies will not be visualized mammographically. In the management of a palpable breast mass, a negative mammogram must not discourage biopsy of a clinically suspicious lesion. Electronically Signed By: Noah Gutiérrez M.D. slc/:07/21/2023 11:49:08 ACR BI-RADS Category 0: Incomplete 3340F
--- NOTE | 2023-07-21 11:44 | DI.US.S_ITS ---
LIMITED ULTRASOUND OF RIGHT BREAST: 07/21/2023 CLINICAL: Patient returns today to evaluate an asymmetry in the right breast. Comparison is made to exams dated: 07/21/2023 mammogram - , 11/24/2021 stereotactic biopsy - [facility], 10/27/2021 mammogram, 08/25/2021 mammogram, 07/01/2020 mammogram, and 05/17/2017 mammogram - . Real-time ultrasound of the right breast 12 o'clock, and retroareolar regions was performed. Perez scale images of the real-time examination were reviewed. No significant abnormalities were seen sonographically in the right breast in the region of possible architectural distortion. IMPRESSION: NEGATIVE There is no sonographic evidence of malignancy. Exam findings were conveyed to the patient. A 1 year screening mammogram is recommended. This exam was interpreted at Station ID: [id number]. Electronically Signed By: Noah Gutiérrez M.D. slc/:07/28/2023 11:29:21 letter sent: Normal Exam Ultrasound BI-RADS: 1 Negative
== END ==
PROVIDERS: Family Provider Family Medicine; PCP Family Medicine; Referring Provider Family Medicine; Visit Provider Family Medicine
DX: R92.8 Other abnormal and inconclusive findings on diagnostic imaging of breast (principal)
CPT/HCPCS: 76642; 77066; G0279

== ENCOUNTER 2023-08-02 10:00 | Outpatient (RCR) | payer MEDICARE, OTHER, SELFPAY ==
--- NOTE | 2023-07-14 14:50 | PT.OIE ---
Current Diagnoses Unspecified sprain of unspecified shoulder joint, initial encounter (07/14/23) Past Medical History (Last Reviewed 05/21/23 @ 01:53 by Yasmany Sanchez DO) Abnormal mammogram of right breast Degenerative disc disease Encounter for screening laboratory testing for COVID-19 virus Gastroenteritis Gout (05/04/15) Hearing loss of both ears (2016) History of fibula fracture (07/2019) History of hay fever Mixed hyperlipidemia Nerve damage of foot Osteoarthritis, multiple sites Osteopenia after menopause Seasonal allergic rhinitis due to pollen Vitamin D deficiency Visit Care Team Role Provider Type Antonia Mancilla DO Family Provider Physician Primary Care Provider Specialty: Medical Address: [address] [place] [address], [id number] Email: [email or web address] CHUCKY Ortiz Attending Provider Advanced Buffet Runner Referring Provider Specialty: Medical Address: [address] [place] [address], [address] Email: [email or web address] Physical Therapy Initial Evaluation PT-OP-A Visit Information Start: 07/14/23 12:51 Freq: Status: Active Protocol: Document 07/14/23 14:38 ED (Rec: 07/14/23 14:50 ED [id number]) Out-Patient Physical Therapy Visit Information Visit Information Visit Type Initial Evaluation Visit Start Time 12:45 Visit Stop Time 13:30 Total Visit Minutes 45 Visit Number 1 Evaluation Information Evaluation Date 07/14/23 PT-OP-B Current Condition Start: 07/14/23 12:51 Freq: Status: Active Protocol: Document 07/14/23 14:38 ED (Rec: 07/14/23 14:50 ED [id number]) Current Condition History of Current Condition Onset Date May 20 Current Complaints L shoulder, L hip History of Current Condition Pt states that on May 20 she tripped going up the stairs and had an awkward landing that resulted in pain in her L shoulder and L hip. She states that both her shoulder and hip are feeling better but have plateaued. She notes she can't raise her shoulder to the side as high as her R side and that her hip hurts in the mornings and gets more fatigued than her R hip when walking. She states she has a 3# and 5# dumbbell at home that she can use for exercise. Treatment Goals Patient/Caregiver Goals Be able to perform 90/90 shoulder movement on wall PT-OP-C Subjective Start: 07/14/23 12:51 Freq: Status: Active Protocol: Document 07/14/23 14:38 ED (Rec: 07/14/23 14:50 ED [id number]) Patient Questionnaires Quick Dash- Upper Extremity Quick Dash UE Score 27.3 / 100 = 27.3 % Quick Dash UE Impairment 20 to 39% Impaired (Score 20- 39) PT-OP-K Range of Motion Start: 07/14/23 12:51 Freq: Status: Active Protocol: Document 07/14/23 14:38 ED (Rec: 07/14/23 14:50 ED [id number]) Shoulder Goniometric Range of Motion Shoulder Right Active Shoulder ROM WFL Yes Testing Position Sitting Flexion 155 Abduction 130 Left Active Shoulder ROM WFL No Testing Position Sitting Flexion 125 Abduction 90 Hip Goniometric Range of Motion Hip Left Hip ROM WFL Yes Testing Position Supine Flexion w/Knee Flexed 110 Internal Rotation 40 External Rotation 40 PT-OP-L Special Tests Start: 07/14/23 12:51 Freq: Status: Active Protocol: Document 07/14/23 14:38 ED (Rec: 07/14/23 14:50 ED [id number]) Special Tests Shoulder Special Tests Shell Cristobal Impingement Test Results + PT-OP-M Strength Start: 07/14/23 12:51 Freq: Status: Active Protocol: Document 07/14/23 14:38 ED (Rec: 07/14/23 14:50 ED [id number]) Shoulder Strength Shoulder Manual Muscle Testing Right Flexion 4 Good Extension 4 Good Abduction (C5) 4 Good External Rotation 4 Good Internal Rotation 4 Good Left Flexion 4 Good Extension 4 Good Abduction (C5) 4 Good External Rotation 3+ Fair+ Internal Rotation 4 Good PT-OP-T Assessment and Plan Start: 07/14/23 12:51 Freq: Status: Active Protocol: Document 07/14/23 14:38 ED (Rec: 07/14/23 14:50 ED [id number]) Physical Therapy Assessment Rehab Potential Rehabilitation Potential Good Evaluation Complexity Number of Personal Factors/Comorbidities 1-2 Number of Body Systems Impaired 1-2 Clinical Presentation at Evaluation Stable Impairments Impairments Activity Tolerance,Functional Activities,Pain,ROM,Strength Goals Three Impairment QuickDASH Crematory Operator Goal (LTG) Pt will improve QuickDASH score by >11 points to a score of <16 meeting MCID criteria. LTG Duration 6-8 weeks Two Impairment ROM Short Term Goal (STG) Pt will improve L shoulder flexion ROM to 135 degrees STG Duration 3 weeks Alf Goal (LTG) Pt will improve L shoulder flexion AROM to 140 degrees and shoulder abduction AROM to 110 degrees. LTG Duration 6-8 weeks One Impairment HEP Short Term Goal (STG) Pt will report performing HEP 3-4 days/week. STG Duration 3 weeks Crematory Operator Goal (LTG) Pt will report performing HEP 3-4 days/week. LTG Duration 6-8 weeks Assessment Summary Assessment Pt reported to PT c/ complaints of L shoulder and L hip pain after a fall on May 20, 2023. Pt demonstrated reduced shoulder AROM but no signs of scapular hiking. Pt did have noticeable strength deficit specifically into external rotation for her L shoulder but otherwise had similar strength levels for L and R shoulder. Pt denied pain during strength testing. PT provided patient HEP of : s/l ER, s/l abduction, wall slides , and lateral raise isometrics for her shoulder in addition to bridges, s/l bridges, and s /l hip abduction. Pt able to do all exercises today comfortably. Physical Therapy Plan Frequency and Duration Frequency of Treatment 1x/Week Duration of treatment (weeks) 10 Plan of Care Start Date 07/14/23 Plan of Care End Date 10/12/23 Therapeutic Interventions Therapeutic Interventions Gait Training,Home Exercise Program,Joint Mobilizations, Manual Therapy,Neuromuscular Re-education,Patient/Caregiver Education,Self-Care/Home Management,Soft Tissue Mobilization,Therapeutic Activities,Therapeutic Exercises Modalities Biofeedback,Cold Pack/Ice Massage,Electric Stimulation, Hot Packs,Ultrasound Next Visit Focus/Plan Next Note Type Treatment Note Next Visit Plan bike, pulleys (HEP : s/l ER, s /l abduction, wall slides, lateral raise, bridge, staggered bridge, s/l bridge, s/l hip abduction), sit<> stands
--- NOTE | 2023-07-14 14:50 | PT.OPPOC ---
Physical, Occupational & Speech Therapy At [facility] Current Diagnoses Unspecified sprain of unspecified shoulder joint, initial encounter (07/14/23) Visit Care Team Role Provider Type Antonia Mancilla DO Family Provider Physician Primary Care Provider Specialty: Medical Address: [address] [place] [address], [address], [address] Email: [email or web address] CHUCKY Ortiz Attending Provider Advanced Bat Boy/Girl Referring Provider Specialty: Medical Address: [address] [place] [address] [address] [place] [address], [address] Email: [email or web address] Plan Of Care PT-OP-T Assessment and Plan Start: 07/14/23 12:51 Freq: Status: Active Protocol: Document 07/14/23 14:38 ED (Rec: 07/14/23 14:50 ED [id number]) Physical Therapy Assessment Rehab Potential Rehabilitation Potential Good Evaluation Complexity Number of Personal Factors/Comorbidities 1-2 Number of Body Systems Impaired 1-2 Clinical Presentation at Evaluation Stable Impairments Impairments Activity Tolerance,Functional Activities,Pain,ROM,Strength Goals Three Impairment QuickDASH Senior Living Goal (LTG) Pt will improve QuickDASH score by >11 points to a score of <16 meeting MCID criteria. LTG Duration 6-8 weeks Two Impairment ROM Short Term Goal (STG) Pt will improve L shoulder flexion ROM to 135 degrees STG Duration 3 weeks Senior Living Goal (LTG) Pt will improve L shoulder flexion AROM to 140 degrees and shoulder abduction AROM to 110 degrees. LTG Duration 6-8 weeks One Impairment HEP Short Term Goal (STG) Pt will report performing HEP 3-4 days/week. STG Duration 3 weeks Senior Living Goal (LTG) Pt will report performing HEP 3-4 days/week. LTG Duration 6-8 weeks Assessment Summary Assessment Pt reported to PT c/ complaints of L shoulder and L hip pain after a fall on May 20, 2023. Pt demonstrated reduced shoulder AROM but no signs of scapular hiking. Pt did have noticeable strength deficit specifically into external rotation for her L shoulder but otherwise had similar strength levels for L and R shoulder. Pt denied pain during strength testing. PT provided patient HEP of : s/l ER, s/l abduction, wall slides , and lateral raise isometrics for her shoulder in addition to bridges, s/l bridges, and s /l hip abduction. Pt able to do all exercises today comfortably. Physical Therapy Plan Frequency and Duration Frequency of Treatment 1x/Week Duration of treatment (weeks) 10 Plan of Care Start Date 07/14/23 Plan of Care End Date 10/12/23 Therapeutic Interventions Therapeutic Interventions Gait Training,Home Exercise Program,Joint Mobilizations, Manual Therapy,Neuromuscular Re-education,Patient/Caregiver Education,Self-Care/Home Management,Soft Tissue Mobilization,Therapeutic Activities,Therapeutic Exercises Modalities Biofeedback,Cold Pack/Ice Massage,Electric Stimulation, Hot Packs,Ultrasound Next Visit Focus/Plan Next Note Type Treatment Note Next Visit Plan bike, pulleys (HEP : s/l ER, s /l abduction, wall slides, lateral raise, bridge, staggered bridge, s/l bridge, s/l hip abduction), sit<> stands Plan of Care Dates Plan of Care Start Date 07/14/23 Plan of Care End Date 10/12/23 Electronically Signed by: Tomás Abraham, PT 07/14/23 2821 If you are in agreement with this Plan of Care, please return a signed and dated copy. I have reviewed this Plan of Care and certify that the skilled therapy services above are required to meet the patient?s needs. Physician Signature Date Printed Name and Credentials Clinical Instructor Signature Printed Name and Credentials
--- NOTE | 2023-07-19 08:59 | PT.OTN ---
Current Diagnoses Unspecified sprain of unspecified shoulder joint, initial encounter (07/19/23) Physical Therapy Treatment Note PT-OP-A Visit Information Start: 07/14/23 12:51 Freq: Status: Active Protocol: Document 07/19/23 08:55 ED (Rec: 07/19/23 08:59 ED [id number]) Out-Patient Physical Therapy Visit Information Visit Information Visit Type Treatment Note Visit Start Time 08:15 Visit Stop Time 08:55 Total Visit Minutes 40 Visit Number 2 PT-OP-B Current Condition Start: 07/14/23 12:51 Freq: Status: Active Protocol: Document 07/14/23 14:38 ED (Rec: 07/14/23 14:50 ED [id number]) Current Condition History of Current Condition Onset Date May 20 Current Complaints L shoulder, L hip History of Current Condition Pt states that on May 20 she tripped going up the stairs and had an awkward landing that resulted in pain in her L shoulder and L hip. She states that both her shoulder and hip are feeling better but have plateaued. She notes she can't raise her shoulder to the side as high as her R side and that her hip hurts in the mornings and gets more fatigued than her R hip when walking. She states she has a 3# and 5# dumbbell at home that she can use for exercise. Treatment Goals Patient/Caregiver Goals Be able to perform 90/90 shoulder movement on wall PT-OP-C Subjective Start: 07/14/23 12:51 Freq: Status: Active Protocol: Document 07/19/23 08:55 ED (Rec: 07/19/23 08:59 ED [id number]) OP-PT Subjective Patient Comments Patient Comments Pt states that her shoulder is feeling more mobile and she thinks she is seeing improvements in just 1 week. PT-OP-K Range of Motion Start: 07/14/23 12:51 Freq: Status: Active Protocol: Document 07/14/23 14:38 ED (Rec: 07/14/23 14:50 ED [id number]) Shoulder Goniometric Range of Motion Shoulder Right Active Shoulder ROM WFL Yes Testing Position Sitting Flexion 155 Abduction 130 Left Active Shoulder ROM WFL No Testing Position Sitting Flexion 125 Abduction 90 Hip Goniometric Range of Motion Hip Left Hip ROM WFL Yes Testing Position Supine Flexion w/Knee Flexed 110 Internal Rotation 40 External Rotation 40 PT-OP-L Special Tests Start: 07/14/23 12:51 Freq: Status: Active Protocol: Document 07/14/23 14:38 ED (Rec: 07/14/23 14:50 ED [id number]) Special Tests Shoulder Special Tests Shell Cristobal Impingement Test Results + PT-OP-M Strength Start: 07/14/23 12:51 Freq: Status: Active Protocol: Document 07/14/23 14:38 ED (Rec: 07/14/23 14:50 ED [id number]) Shoulder Strength Shoulder Manual Muscle Testing Right Flexion 4 Good Extension 4 Good Abduction (C5) 4 Good External Rotation 4 Good Internal Rotation 4 Good Left Flexion 4 Good Extension 4 Good Abduction (C5) 4 Good External Rotation 3+ Fair+ Internal Rotation 4 Good PT-OP-Q Treatments Start: 07/14/23 12:51 Freq: Status: Active Protocol: Document 07/19/23 08:55 ED (Rec: 07/19/23 08:59 ED [id number]) Cardio Equipment Recumbent Bicycle Duration (Minutes) 5 Resistance 5 Therapeutic Exercises Sidelying Exercises shoulder abduction Resistance 2-3# Reps/Minutes 2x15 hip abduction Reps/Minutes 2x10 external rotation Equipment Used 3 Reps/Minutes 2x15 Sitting Exercises pulleys Equipment Used pulleys Reps/Minutes x2' Comments flexion, scaption Standing Exercises shoulder wall slides Reps/Minutes x20 lateral raises Resistance 3# Reps/Minutes 2x30'' isometric hold Therapeutic Activity Therapeutic Activity step up Name step up/step down Reps/Minutes 2x10 Comments 8'' PT-OP-T Assessment and Plan Start: 07/14/23 12:51 Freq: Status: Active Protocol: Document 07/19/23 08:55 ED (Rec: 07/19/23 08:59 ED [id number]) Physical Therapy Assessment Goals Three Impairment QuickDASH Skilled Nursing Goal (LTG) Pt will improve QuickDASH score by >11 points to a score of <16 meeting MCID criteria. LTG Duration 6-8 weeks Two Impairment ROM Short Term Goal (STG) Pt will improve L shoulder flexion ROM to 135 degrees STG Duration 3 weeks Utilization Reviewer Goal (LTG) Pt will improve L shoulder flexion AROM to 140 degrees and shoulder abduction AROM to 110 degrees. LTG Duration 6-8 weeks One Impairment HEP Short Term Goal (STG) Pt will report performing HEP 3-4 days/week. STG Duration 3 weeks Utilization Reviewer Goal (LTG) Pt will report performing HEP 3-4 days/week. LTG Duration 6-8 weeks Assessment Summary Assessment Pt did well during treatment today. Pt had noticeable improvement in shoulder abduction ROM. Pain was rated as 3/10 at worst during exercises today. Pt requested to have as many exercises as she can so she can perform them at home and have less PT visits. Physical Therapy Plan Frequency and Duration Frequency of Treatment 1x/Week Duration of treatment (weeks) 10 Plan of Care Start Date 07/14/23 Plan of Care End Date 10/12/23 Next Visit Focus/Plan Next Note Type Treatment Note Next Visit Plan bike, pulleys (HEP : s/l ER, s /l abduction, wall slides, lateral raise, bridge, staggered bridge, s/l bridge, s/l hip abduction), sit<> stands *wants life exercises: sit<> stands, SL balance, rows, arms
--- NOTE | 2023-07-27 09:54 | PT.OTN ---
Current Diagnoses Unspecified sprain of unspecified shoulder joint, initial encounter (07/27/23) Physical Therapy Treatment Note PT-OP-A Visit Information Start: 07/14/23 12:51 Freq: Status: Active Protocol: Document 07/27/23 09:49 ED (Rec: 07/27/23 09:54 ED [id number]) Out-Patient Physical Therapy Visit Information Visit Information Visit Type Treatment Note Visit Start Time 09:05 Visit Stop Time 09:50 Total Visit Minutes 45 Visit Number 3 PT-OP-B Current Condition Start: 07/14/23 12:51 Freq: Status: Active Protocol: Document 07/14/23 14:38 ED (Rec: 07/14/23 14:50 ED [id number]) Current Condition History of Current Condition Onset Date May 20 Current Complaints L shoulder, L hip History of Current Condition Pt states that on May 20 she tripped going up the stairs and had an awkward landing that resulted in pain in her L shoulder and L hip. She states that both her shoulder and hip are feeling better but have plateaued. She notes she can't raise her shoulder to the side as high as her R side and that her hip hurts in the mornings and gets more fatigued than her R hip when walking. She states she has a 3# and 5# dumbbell at home that she can use for exercise. Treatment Goals Patient/Caregiver Goals Be able to perform 90/90 shoulder movement on wall PT-OP-C Subjective Start: 07/14/23 12:51 Freq: Status: Active Protocol: Document 07/27/23 09:49 ED (Rec: 07/27/23 09:54 ED [id number]) OP-PT Subjective Patient Comments Patient Comments Pt states that she has noticed a marked improvement in her L shoulder since starting PT. States she has 3 more visits and then thinks she can be finished c/ PT at that time. PT-OP-K Range of Motion Start: 07/14/23 12:51 Freq: Status: Active Protocol: Document 07/14/23 14:38 ED (Rec: 07/14/23 14:50 ED [id number]) Shoulder Goniometric Range of Motion Shoulder Right Active Shoulder ROM WFL Yes Testing Position Sitting Flexion 155 Abduction 130 Left Active Shoulder ROM WFL No Testing Position Sitting Flexion 125 Abduction 90 Hip Goniometric Range of Motion Hip Left Hip ROM WFL Yes Testing Position Supine Flexion w/Knee Flexed 110 Internal Rotation 40 External Rotation 40 PT-OP-L Special Tests Start: 07/14/23 12:51 Freq: Status: Active Protocol: Document 07/14/23 14:38 ED (Rec: 07/14/23 14:50 ED [id number]) Special Tests Shoulder Special Tests Shell Cristobal Impingement Test Results + PT-OP-M Strength Start: 07/14/23 12:51 Freq: Status: Active Protocol: Document 07/14/23 14:38 ED (Rec: 07/14/23 14:50 ED [id number]) Shoulder Strength Shoulder Manual Muscle Testing Right Flexion 4 Good Extension 4 Good Abduction (C5) 4 Good External Rotation 4 Good Internal Rotation 4 Good Left Flexion 4 Good Extension 4 Good Abduction (C5) 4 Good External Rotation 3+ Fair+ Internal Rotation 4 Good PT-OP-Q Treatments Start: 07/14/23 12:51 Freq: Status: Active Protocol: Document 07/27/23 09:49 ED (Rec: 07/27/23 09:54 ED [id number]) Cardio Equipment Recumbent Bicycle Duration (Minutes) 5 Resistance 5 Therapeutic Exercises Supine Exercises bridge variations Reps/Minutes 1x10 ea Comments bridge, SL bridge, banded bridge Prone Exercises qudaruped hip stretch Side bilateral Reps/Minutes x60'' ea Standing Exercises band walk Standing Exercise Name lateral band walk Resistance green loop Reps/Minutes 2x10 ft elevated bicep curl Side bilateral Resistance green band Reps/Minutes 2x15 ea lateral raises Resistance 3# Reps/Minutes 2x15 ea Therapeutic Activity Therapeutic Activity RDL Reps/Minutes 1x15 Comments 10# to 8'' step Squat Name low chair STS Reps/Minutes [id number] Comments 10# PT-OP-T Assessment and Plan Start: 07/14/23 12:51 Freq: Status: Active Protocol: Document 07/27/23 09:49 ED (Rec: 07/27/23 09:54 ED [id number]) Physical Therapy Assessment Goals Three Impairment QuickDASH Project Estimator Goal (LTG) Pt will improve QuickDASH score by >11 points to a score of <16 meeting MCID criteria. LTG Duration 6-8 weeks Two Impairment ROM Short Term Goal (STG) Pt will improve L shoulder flexion ROM to 135 degrees STG Duration 3 weeks Project Estimator Goal (LTG) Pt will improve L shoulder flexion AROM to 140 degrees and shoulder abduction AROM to 110 degrees. LTG Duration 6-8 weeks One Impairment HEP Short Term Goal (STG) Pt will report performing HEP 3-4 days/week. STG Duration 3 weeks Project Estimator Goal (LTG) Pt will report performing HEP 3-4 days/week. LTG Duration 6-8 weeks Assessment Summary Assessment PT provided patient c/ more exercises for home including repeated STS, fwd/lateral raises, modified deadlift, and walking. Pt had slight discomfort during lateral raises but rated it low at about a 2-3/10. Pt able to perform all other movements c/ o pain. Physical Therapy Plan Frequency and Duration Frequency of Treatment 1x/Week Duration of treatment (weeks) 10 Plan of Care Start Date 07/14/23 Plan of Care End Date 10/12/23 Next Visit Focus/Plan Next Note Type Treatment Note Next Visit Plan bike, pulleys sit<>stands, SL balance, RDL, rows, SAPD, high row, bicep curl HEP : s/l ER, s/l abduction, wall slides, lateral raise, bridge, staggered bridge, s/l bridge, s/l hip abduction)
--- NOTE | 2023-08-02 11:27 | PT.OTN ---
Current Diagnoses Unspecified sprain of unspecified shoulder joint, initial encounter (08/02/23) Physical Therapy Treatment Note PT-OP-A Visit Information Start: 07/14/23 12:51 Freq: Status: Active Protocol: Document 08/02/23 11:24 ED (Rec: 08/02/23 11:27 ED [id number]) Out-Patient Physical Therapy Visit Information Visit Information Visit Type Treatment Note Visit Start Time 10:00 Visit Stop Time 10:45 Total Visit Minutes 45 Visit Number 4 PT-OP-B Current Condition Start: 07/14/23 12:51 Freq: Status: Active Protocol: Document 07/14/23 14:38 ED (Rec: 07/14/23 14:50 ED [id number]) Current Condition History of Current Condition Onset Date May 20 Current Complaints L shoulder, L hip History of Current Condition Pt states that on May 20 she tripped going up the stairs and had an awkward landing that resulted in pain in her L shoulder and L hip. She states that both her shoulder and hip are feeling better but have plateaued. She notes she can't raise her shoulder to the side as high as her R side and that her hip hurts in the mornings and gets more fatigued than her R hip when walking. She states she has a 3# and 5# dumbbell at home that she can use for exercise. Treatment Goals Patient/Caregiver Goals Be able to perform 90/90 shoulder movement on wall PT-OP-C Subjective Start: 07/14/23 12:51 Freq: Status: Active Protocol: Document 08/02/23 11:24 ED (Rec: 08/02/23 11:27 ED [id number]) OP-PT Subjective Patient Comments Patient Comments Pt states that she may be gone for a few weeks as she heads to [place] to help take care of her father. She notes that her shoulder and hip are feeling much better but still has some pain. PT-OP-K Range of Motion Start: 07/14/23 12:51 Freq: Status: Active Protocol: Document 07/14/23 14:38 ED (Rec: 07/14/23 14:50 ED [id number]) Shoulder Goniometric Range of Motion Shoulder Right Active Shoulder ROM WFL Yes Testing Position Sitting Flexion 155 Abduction 130 Left Active Shoulder ROM WFL No Testing Position Sitting Flexion 125 Abduction 90 Hip Goniometric Range of Motion Hip Left Hip ROM WFL Yes Testing Position Supine Flexion w/Knee Flexed 110 Internal Rotation 40 External Rotation 40 PT-OP-L Special Tests Start: 07/14/23 12:51 Freq: Status: Active Protocol: Document 07/14/23 14:38 ED (Rec: 07/14/23 14:50 ED [id number]) Special Tests Shoulder Special Tests Shell Cristobal Impingement Test Results + PT-OP-M Strength Start: 07/14/23 12:51 Freq: Status: Active Protocol: Document 07/14/23 14:38 ED (Rec: 07/14/23 14:50 ED [id number]) Shoulder Strength Shoulder Manual Muscle Testing Right Flexion 4 Good Extension 4 Good Abduction (C5) 4 Good External Rotation 4 Good Internal Rotation 4 Good Left Flexion 4 Good Extension 4 Good Abduction (C5) 4 Good External Rotation 3+ Fair+ Internal Rotation 4 Good PT-OP-Q Treatments Start: 07/14/23 12:51 Freq: Status: Active Protocol: Document 08/02/23 11:24 ED (Rec: 08/02/23 11:27 ED [id number]) Cardio Equipment Recumbent Bicycle Duration (Minutes) 5 Resistance 5 Therapeutic Exercises Sidelying Exercises shoulder abduction Resistance 2-3# Reps/Minutes 2x15 Standing Exercises SAPD Resistance purple Reps/Minutes 2x15 row Resistance purple Reps/Minutes 2x15 Therapeutic Activity Therapeutic Activity Squat Name low chair STS Reps/Minutes 2z26-14 Comments 10# PT-OP-T Assessment and Plan Start: 07/14/23 12:51 Freq: Status: Active Protocol: Document 08/02/23 11:24 ED (Rec: 08/02/23 11:27 ED [id number]) Physical Therapy Assessment Goals Three Impairment QuickDASH Carcass Washer Goal (LTG) Pt will improve QuickDASH score by >11 points to a score of <16 meeting MCID criteria. LTG Duration 6-8 weeks Two Impairment ROM Short Term Goal (STG) Pt will improve L shoulder flexion ROM to 135 degrees STG Duration 3 weeks Senior Care Goal (LTG) Pt will improve L shoulder flexion AROM to 140 degrees and shoulder abduction AROM to 110 degrees. LTG Duration 6-8 weeks One Impairment HEP Short Term Goal (STG) Pt will report performing HEP 3-4 days/week. STG Duration 3 weeks Senior Care Goal (LTG) Pt will report performing HEP 3-4 days/week. LTG Duration 6-8 weeks Assessment Summary Assessment Pt and patient spoke at length in how to organize her HEP so that it has more structure and so she can think less about what to do and how many to do. Pt will be out of town for the next month or so and is unlikely to be able to make any more PT visits. PT informed patient that they can communicate over phone to discuss exercises while she is away. Physical Therapy Plan Frequency and Duration Frequency of Treatment 1x/Week Duration of treatment (weeks) 10 Plan of Care Start Date 07/14/23 Plan of Care End Date 10/12/23 Next Visit Focus/Plan Next Note Type Treatment Note Next Visit Plan *organize HEP, write program bike, pulleys sit<>stands, SL balance, RDL, rows, SAPD, high row, bicep curl HEP : s/l ER, s/l abduction, wall slides, lateral raise, bridge, staggered bridge, s/l bridge, s/l hip abduction)
--- NOTE | 2023-09-05 10:19 | PT.OPDS ---
Current Diagnoses Unspecified sprain of unspecified shoulder joint, initial encounter (08/02/23) Visit Care Team Role Provider Type Antonia Mancilla DO Family Provider Physician Primary Care Provider Specialty: Medical Address: [address] [place] [address] [address], [place], [address] Email: [email or web address] CHUCKY Ortiz Attending Provider Advanced Medical Secretary Teacher Referring Provider Specialty: Medical Address: [address] [place] [address], [id number] Email: [email or web address] Visit Number Visit Number 4 Discharge Summary PT-OP-B Current Condition Start: 07/14/23 12:51 Freq: Status: Active Protocol: Document 07/14/23 14:38 ED (Rec: 07/14/23 14:50 ED [id number]) Current Condition History of Current Condition Onset Date May 20 Current Complaints L shoulder, L hip History of Current Condition Pt states that on May 20 she tripped going up the stairs and had an awkward landing that resulted in pain in her L shoulder and L hip. She states that both her shoulder and hip are feeling better but have plateaued. She notes she can't raise her shoulder to the side as high as her R side and that her hip hurts in the mornings and gets more fatigued than her R hip when walking. She states she has a 3# and 5# dumbbell at home that she can use for exercise. Treatment Goals Patient/Caregiver Goals Be able to perform 90/90 shoulder movement on wall PT-OP-C Subjective Start: 07/14/23 12:51 Freq: Status: Active Protocol: Document 08/02/23 11:24 ED (Rec: 08/02/23 11:27 ED [id number]) OP-PT Subjective Patient Comments Patient Comments Pt states that she may be gone for a few weeks as she heads to [place] to help take care of her father. She notes that her shoulder and hip are feeling much better but still has some pain. PT-OP-K Range of Motion Start: 07/14/23 12:51 Freq: Status: Active Protocol: Document 07/14/23 14:38 ED (Rec: 07/14/23 14:50 ED [id number]) Shoulder Goniometric Range of Motion Shoulder Right Active Shoulder ROM WFL Yes Testing Position Sitting Flexion 155 Abduction 130 Left Active Shoulder ROM WFL No Testing Position Sitting Flexion 125 Abduction 90 Hip Goniometric Range of Motion Hip Left Hip ROM WFL Yes Testing Position Supine Flexion w/Knee Flexed 110 Internal Rotation 40 External Rotation 40 PT-OP-L Special Tests Start: 07/14/23 12:51 Freq: Status: Active Protocol: Document 07/14/23 14:38 ED (Rec: 07/14/23 14:50 ED [id number]) Special Tests Shoulder Special Tests Shell Cristobal Impingement Test Results + PT-OP-M Strength Start: 07/14/23 12:51 Freq: Status: Active Protocol: Document 07/14/23 14:38 ED (Rec: 07/14/23 14:50 ED [id number]) Shoulder Strength Shoulder Manual Muscle Testing Right Flexion 4 Good Extension 4 Good Abduction (C5) 4 Good External Rotation 4 Good Internal Rotation 4 Good Left Flexion 4 Good Extension 4 Good Abduction (C5) 4 Good External Rotation 3+ Fair+ Internal Rotation 4 Good PT-OP-T Assessment and Plan Start: 07/14/23 12:51 Freq: Status: Active Protocol: Document 09/05/23 10:17 ED (Rec: 09/05/23 10:19 ED [id number]) Physical Therapy Assessment Goals Three Impairment QuickDASH Group Home Goal (LTG) Pt will improve QuickDASH score by >11 points to a score of <16 meeting MCID criteria. LTG Duration 6-8 weeks Two Impairment ROM Short Term Goal (STG) Pt will improve L shoulder flexion ROM to 135 degrees STG Duration 3 weeks Zigzag Appliquer Goal (LTG) Pt will improve L shoulder flexion AROM to 140 degrees and shoulder abduction AROM to 110 degrees. LTG Duration 6-8 weeks One Impairment HEP Short Term Goal (STG) Pt will report performing HEP 3-4 days/week. STG Duration 3 weeks Zigzag Appliquer Goal (LTG) Pt will report performing HEP 3-4 days/week. LTG Duration 6-8 weeks Assessment Summary Assessment Pt will be discharged from PT at this time as over a month has lapsed since she was last in; she had to take a trip to [place] and did not know when she would return. Pt had reported improvements in L shoulder and L hip pain. PT and patient went over simple home exercises that she could do; she was a great participant in the PT sessions . Physical Therapy Plan Discharge Physical Therapy Discharge Reasons No Longer Attending PT
== END 2023-09-07 10:48 | disposition home or self-care (01) ==
LOC: PHYS 10:00
PROVIDERS: Family Provider Family Medicine; PCP Family Medicine; Referring Provider Nurse Practitioner Family; Visit Provider Nurse Practitioner Family
DX: S43.409A Unspecified sprain of unspecified shoulder joint, initial encounter (principal)
CPT/HCPCS: 97110; 97161; 97530

== ENCOUNTER → 2023-12-20 12:14 | Outpatient (CLI) | payer OTHER, SELFPAY ==
--- NOTE | 2023-12-20 12:15 | DI.RAD.S_ITS ---
PROCEDURE: XR DEXA AXIAL SKELETON INDICATIONS: bone density screening COMPARISON: [facility], CR, XR DEXA AXIAL SKELETON, 05/06/2020, 13:09. FINDINGS: This blank DEXA report has been sent in error by the PACS system. The correct and complete report will be forthcoming in 1-2 days. Thank you for your patience and understanding. Approved by: Tomás Faith M.D. on 12/20/2023 at 20:37
--- NOTE | 2023-12-20 12:33 | DI.DEXA.S_ITS ---
Bone Density Report Name: LORI FOLEY Age: 63 Sex: Female Ethnicity: White Date of : 1960 Indication: postmenopausal; screening for osteoporosis; Referring Provider: BEVERLEY JACOME Study: Bone densitometry was performed. Exam Date: December 20, 2023 Accession number: [id number] Bone Density: Region BMD T-score Z-score Classification AP Spine(L1-L4) 1.036 -0.1 1.7 Normal Femoral Neck (Left) 0.667 -1.6 -0.1 Osteopenia Total Hip (Left) 0.864 -0.6 0.6 Normal Femoral Neck (Right) 0.639 -1.9 -0.4 Osteopenia Total Hip (Right) 0.898 -0.4 0.9 Normal Total Hip Mean 0.881 -0.5 0.8 Normal World Health Organization criteria for BMD impression classify patients as: Normal (T-score at or above -1.0), Osteopenia (T-score between -1.0 and -2.5), or Osteoporosis (T-score at or below -2.5). 10-year Fracture Risk(1): Major Osteoporotic Fracture 9.8% Hip Fracture 1.3% Reported Risk Factors: [place] (), Neck BMD=0.639, BMI=29.2 (1) FRAX(R) Version 3.08. Fracture probability calculated for an untreated patient. Fracture probability may be lower if the patient has received treatment. Previous Exams: -- Region Exam Age BMD T-score BMD Change BMD Change Date g/cm2 vs Baseline vs Previous -- AP Spine (L1-L4) 12/20/2023 63 1.036 -0.1 -0.123 (-10.6%)# -0.123 (-10.6%)# 05/06/2020 59 1.159 1.0 Total Hip(Left) 12/20/2023 63 0.864 -0.6 0.024 (2.8%)# 0.024 (2.8%)# 05/06/2020 59 0.840 -0.8 Total Hip(Right) 12/20/2023 63 0.898 -0.4 0.073 (8.8%)# 0.073 (8.8%)# 05/06/2020 59 0.825 -1.0 -- *Denotes significance at 95% confidence level, LSC for AP Spine = 0.022 g/cm2, LSC for Total Hip = 0.027 g/cm2 # Denotes dissimilar scan types or analysis methods Impression: The patient has low bone mass, based on the Right Femoral Neck T-score. The patient has an estimated ten-year risk of hip fracture of 1.3% and an estimated ten-year risk of major fracture of 9.8%, based on the WHO FRAX algorithm. No significant bone loss was observed. Discussion: BONE DENSITY IS LOW AT ONE OR MORE SKELETAL SITES. This patient's lowest T-score is low at one or more skeletal sites. It meets the World Health Organization's (WHO) criteria for ?low bone mass? (T-score between -1.0 and -2.5). The patient's 10-year risk of fracture as calculated by FRAX is less than the threshold where pharmacological therapy is recommended by the National Osteoporosis Foundation (NOF). However, all treatment decisions require clinical judgment and consideration of individual patient factors, including patient preferences, comorbidities, previous drug use, risk factors not captured in the FRAX model (e.g., frailty, falls, vitamin D deficiency, increased bone turnover, interval significant decline in bone density) and possible under or overestimation of fracture risk by FRAX. The patient should follow a healthful lifestyle (good nutrition with adequate calcium and vitamin D, and appropriate weight-bearing exercise). Follow-Up: Consider repeating this study in 2 to 3 years to reassess this patient's status, or sooner if there is some new clinical indication. Reported by: [facility] FADI HUMPHREY M.D. on 12/20/2023 12:43:00 PM.
== END ==
PROVIDERS: Family Provider Family Medicine; PCP Family Medicine; Referring Provider Family Medicine; Visit Provider Family Medicine
DX: M81.0 Age-related osteoporosis without current pathological fracture (principal); E78.2 Mixed hyperlipidemia; R53.83 Other fatigue; N95.9 Unspecified menopausal and perimenopausal disorder; E55.9 Vitamin D deficiency, unspecified
CPT/HCPCS: 77080

== ENCOUNTER → 2023-12-29 08:48 | Outpatient (CLI) | payer OTHER, SELFPAY ==
[2023-12-29 09:54] LABS: Add Manual Diff / Slide Review NO; Basophils Absolute Auto 0 /uL (0-100); Basophils Percent Auto 0.6 % (0-2); Eosinophils Absolute Auto 100 /uL (0-450); Eosinophils Percent Auto 3.5 % (2-4); Hematocrit 35.1 % (36-46); Hemoglobin 12.1 g/dL (12.0-16.0); Lymphocytes Absolute Auto 1400 /uL (1100-4500); Lymphocytes Percent Auto 34.4 % (25-40); Mean Corpuscular HGB Conc 34.5 % (30-36); Mean Corpuscular Hemoglobin 31.1 PG (26-34); Mean Corpuscular Volume 90.1 fL (80-100); Monocytes Absolute Auto 300 /uL (0-900); Monocytes Percent Auto 8.1 % (3-14); Neutrophils Absolute Auto 2200 /uL (1500-7000); Neutrophils Percent Auto 53.4 % (50-75); Platelet Count 181 X10^3/uL (150-400); Red Cell Distribution Width 14.9 % (11.6-14.8); White Blood Cell Count 4.2 X10^3/uL (4.5-11.0)
[2023-12-29 10:06] LABS: HEMOLYSIS < 15 (0-50)
[2023-12-29 10:11] LABS: Alanine Aminotransferase 35 IU/L (<35); Albumin 4.3 g/dL (3.5-5.0); Albumin Globulin Ratio 1.4 (1.0-2.8); Alkaline Phosphatase 75 U/L (38-126); Aspartate Aminotransferase 29 IU/L (14-36); BUN Creatinine Ratio 45.3 (6-22); Bilirubin Total 0.7 mg/dL (0.2-1.3); Blood Urea Nitrogen 29 mg/dL (7-17); Calcium 9.5 mg/dL (8.4-10.2); Carbon Dioxide 23 mmol/L (22-32); Chloride 106 mmol/L (98-107); Cholesterol 220 mg/dL (140-199); Estimated Glomerular Filt Rate > 60 mL/min (>60); Globulin 3.1 g/dL (1.7-4.1); Glucose 109 mg/dL (80-110); HDL Cholesterol 88 mg/dL (40-60); LDL Cholesterol Calculated 114 mg/dL (<100); Potassium 4.4 mmol/L (3.4-5.1); Sodium 142 mmol/L (137-145); Total Protein 7.4 g/dL (6.3-8.2); Triglycerides 89 mg/dL (35-150)
[2023-12-29 10:21] LABS: Vitamin D 25 Hydroxy (D3) 37.1 ng/mL (30.0-100.0)
[2023-12-29 10:37] LABS: TSH w/ Reflex to FT4 1.88 uIU/mL (0.47-4.68)
== END ==
PROVIDERS: Family Provider Family Medicine; PCP Family Medicine; Referring Provider Family Medicine; Visit Provider Family Medicine
DX: E55.9 Vitamin D deficiency, unspecified (principal); E78.2 Mixed hyperlipidemia; M81.0 Age-related osteoporosis without current pathological fracture; R53.83 Other fatigue
CPT/HCPCS: 80053; 80061; 82306; 84443; 85025

== ENCOUNTER 2024-02-21 15:22 | Emergency (ER) | payer OTHER, SELFPAY ==
[2024-02-21 15:30] VITALS: BP 194/88; PULSE 60; RESP 14; TEMP 36.6; O2SAT 99; BMI 29.1
--- NOTE | 2024-02-21 15:36 | DI.RAD.S_ITS ---
PROCEDURE: XR HAND LT MIN 3V INDICATIONS: DOG BITE TECHNIQUE: 3 views of the hand(s) acquired. COMPARISON: [facility], , HAND 3V RIGHT, 01/15/2015, 12:20. FINDINGS: Bones: No fractures or dislocations. Carpal bones are normally aligned. No suspicious bony lesions. Soft tissues: No suspicious soft tissue calcifications. Possible subcutaneous emphysema seen. IMPRESSION: No acute osseous abnormalities. Possible subcutaneous emphysema, likely related to history of dog bite. Dictated by: Estevan Sanchez M.D. on 02/21/2024 at 16:48 Approved by: Estevan Sanchez M.D. on 02/21/2024 at 16:49
--- NOTE | 2024-02-21 18:03 | ED_ITS ---
HPI - Animal Bite General Chief Complaint: Animal Bite Stated Complaint: dog bite to left hand Time Seen by Provider: 02/21/24 17:59 Source: patient Mode of arrival: Ambulatory History of Present Illness HPI narrative: Patient presents for dog bite to her left hand. Patient states that her dog has had medical issues and had surgery recently. At home the patient accidentally disturbed the dog and she snapped, biting her hand. Dog is up-to-date on vaccinations. Patient was not know when her last tetanus shot was administered. Related Data Home Medications Medication Instructions Recorded Confirmed azelastine 137 mcg (0.1 %) nasal 1 spray intranasal ONCE PRN 06/19/19 01/02/24 spray aerosol desonide 0.05 % topical cream 1 applictn topical QID PRN skin 06/19/19 01/02/24 irritation CBD topical 12/25/19 01/02/24 dupilumab 300 mg/2 mL subcutaneous 300 mg SUBCUT Q2W 05/27/20 01/02/24 syringe ([facility]) Previous Rx's Medication Instructions Recorded triamcinolone acetonide 0.5 % 0.5 % topical TIDP PRN ##60 07/15/16 topical ointment cholecalciferol (vitamin D3) 25 25 mcg PO DAILY #90 caps 09/23/22 mcg (1,000 unit) capsule ketoconazole 2 % shampoo See Rx Instructions .Route 11/22/22 .COMPLEX #120 mL cod liver oil 10 ml PO DAILY #473 mL 12/20/22 cetirizine 10 mg tablet 10 mg PO DAILY #90 tabs 03/24/23 hydroxyzine HCl 25 mg tablet See Rx Instructions .Route 04/04/23 .COMPLEX #180 tabs ondansetron 4 mg disintegrating 4 mg PO TID-QID PRN nausea and 05/20/23 tablet vomiting #10 tabs [Sauna therapy] #30 ea 12/13/23 massage therapy #1 ea 12/13/23 allopurinol 200 mg tablet 200 mg PO DAILY #90 tabs 12/27/23 naproxen 500 mg tablet See Rx Instructions .Route 12/27/23 .COMPLEX #270 tabs amoxicillin 875 mg-potassium 1 tab PO Q12H #20 tabs 02/21/24 clavulanate 125 mg tablet Allergies Allergy/AdvReac Type Severity Reaction Status Date / Time cat dander [CAT DANDER] Allergy Severe RASH, Verified 02/21/24 15:30 SNEEZING AND RED EYES dog dander [DOG DANDER] Allergy Severe RASH, Verified 02/21/24 15:30 SNEEZING AND RED EYES grass pollen-perennial rye, Allergy Severe RASH, Verified 02/21/24 15:30 standar SNEEZING [GRASS POLL-PERENNIAL AND RED RYE,STD] EYES tree and shrub pollen Allergy Severe ITCHY Verified 02/21/24 15:30 [TREE AND SHRUB POLLEN] WATERY EYES, RASH AND NASAL CONGESTION Review of Systems Review of Systems Narrative: Negative except as noted above Patient History Medical History Overweight (BMI 25.0-29.9) Ground-level fall (~05/2023) Abnormal mammogram of right breast History of fibula fracture (07/2019) Fracture of distal end of right fibula Ankle sprain Degenerative disc disease History of hay fever Vitamin D deficiency Nerve damage of foot Gastroenteritis Mixed hyperlipidemia Osteopenia after menopause Hearing loss of both ears (2015) Osteoarthritis, multiple sites Seasonal allergic rhinitis due to pollen Gout (05/04/15) Surgical History History of melanoma excision (~2001) Hx of tonsillectomy Family History Father Hyperlipidemia Mother Hyperlipidemia Hypothyroidism Social History Smoking Status: Never smoker second hand exposure: Yes (occasionally, once a year for 10 days while on a fishing trip.) alcohol intake: current (2 drinks per day ) substance use type: marijuana (occasional for sleep ) Smoking Status: Never smoker alcohol intake frequency: 3 or more drinks per day Alcohol type: wine and other Substance Use Type: marijuana Exam Initial Vital Signs Initial Vital Signs: Vital Signs Temperature 97.9 F 02/21/24 15:30 Pulse Rate 60 02/21/24 15:30 Respiratory Rate 14 02/21/24 15:30 Blood Pressure 194/88 H 02/21/24 15:30 Pulse Oximetry 99 02/21/24 15:30 Oxygen Delivery Method Room Air 02/21/24 15:30 Const: Awake, alert, no acute distress, nontoxic appearing MSK: bruising dorsum L hand with some swelling, full range of motion, pulses equal Skin: Warm, Dry, multiple small puncture wounds over dorsum of hand, no active bleeding Neuro: AO x3, CN II-XII grossly intact, moves all extremities Course Orders Ordered: Discontinued Medications Acetaminophen (Acetaminophen 325 Mg Tablet) 975 mg PO NOW ONE Stop: 02/21/24 18:00 Last Admin: 02/21/24 18:13 Dose: 975 mg Documented By: ANGELA Amoxicillin/Clavulanate Potassium (Amoxicillin/Clav 875/125 Mg) 1 tab PO NOW ONE Stop: 02/21/24 18:04 Last Admin: 02/21/24 18:13 Dose: 1 tab Documented By: ANGELA Diphtheria/Tetanus/Acell Pertussis (Tet,Diph,Pertuss(Acell),Vac/Pf 0.5 Ml Syringe) 0.5 ml IM .ONCE ONE Stop: 02/21/24 18:04 Last Admin: 02/21/24 18:13 Dose: 0.5 ml Documented By: ANGELA Vital Signs Vital signs: Vital Signs - 8 hr 02/21/24 18:26 Temperature 98.4 F Pulse Rate 62 Respiratory Rate 18 Blood Pressure 188/75 H Pulse Oximetry 98 MDM - Animal Bite Imaging Data Extremity x-ray #1: Radiologist's Impression: PROCEDURE: XR HAND LT MIN 3V INDICATIONS: DOG BITE TECHNIQUE: 3 views of the hand(s) acquired. COMPARISON: [facility], HAND 3V RIGHT, 01/15/2015, 12:20. FINDINGS: Bones: No fractures or dislocations. Carpal bones are normally aligned. No suspicious bony lesions. Soft tissues: No suspicious soft tissue calcifications. Possible subcutaneous emphysema seen. IMPRESSION: No acute osseous abnormalities. Possible subcutaneous emphysema, likely related to history of dog bite. Dictated by: Estevan Sanchez M.D. on 02/21/2024 at 16:48 Approved by: Estevan Sanchez M.D. on 02/21/2024 at 16:49 [facility] Narrative Medical decision making narrative: Dog bite to hand. Dog is up-to-date on vaccinations. There does seem to be an element of provocation since dog was disturbed and his recently had surgery. There is bruising over the dorsum of the left-hand but patient was neurologically and vascularly intact with full range of motion of her fingers and wrist. X-ray imaging shows no fractures or retained foreign bodies. Patient could not figure out when her last tetanus shot was administered and so an update was given here. Initial dose of Augmentin provided since her pharmacy of choice is currently closed. ED return precautions discussed at bedside. Patient expressed understanding of the plan and is in agreement at this time. All questions answered at the time of discharge. Discharge Plan Departure Patient Disposition: Home Clinical Impression: Dog bite of hand Qualifiers: Encounter type: initial encounter Laterality: left Qualified Code(s): S61.452A - Open bite of left hand, initial encounter Instructions: DI for Dog Bite Activity Restrictions/Additional Instructions: Take all of your antibiotics as prescribed. Elevate the hand to prevent swelling and help with the pain. Take Tylenol and Motrin and apply ice as needed for pain. Prescriptions: New amoxicillin-pot clavulanate 875-125 mg tablet 1 tab PO Q12H Qty: 20 0RF No Action triamcinolone acetonide 0.5 % ointment 0.5 % Topical TIDP PRNQty: 60 1RF cholecalciferol (vitamin D3) 25 mcg (1,000 unit) capsule 25 mcg PO DAILY Qty: 90 0RF Rx Instructions: APPOINTMENT DUE FOR FURTHER REFILLS 09/23/22 ketoconazole 2 % shampoo See Rx Instructions .ROUTE .COMPLEX Qty: 120 1RF Dose Instruction: APPLY TWICE DAILY FOR 2 WEEKS THEN NEEDED 3 TIMES A WEEK Rx Instructions: APPLY TWICE DAILY FOR 2 WEEKS THEN NEEDED 3 TIMES A WEEK cetirizine 10 mg tablet 10 mg PO DAILY Qty: 90 0RF hydroxyzine HCl 25 mg tablet See Rx Instructions .ROUTE .COMPLEX Qty: 180 0RF Dose Instruction: TAKE 1-2 TABLETS AT BEDTIME NEEDED FOR ALLERGIES Rx Instructions: TAKE 1-2 TABLETS AT BEDTIME NEEDED FOR ALLERGIES naproxen 500 mg tablet See Rx Instructions .ROUTE .COMPLEX Qty: 270 0RF Dose Instruction: TAKE 1 TABLET BY MOUTH 2-3 TIMES A DAY Rx Instructions: TAKE 1 TABLET BY MOUTH 2-3 TIMES A DAY. allopurinol 200 mg tablet 200 mg PO DAILY Qty: 90 3RF azelastine 137 mcg (0.1 %) aerosol,spray 1 spray NASAL ONCE PRN desonide 0.05 % cream 1 applictn TOP QID PRN (Reason: skin irritation) Dupixent Syringe 300 mg/2 mL syringe 300 mg SUBCUT Q2W CBD topical cod liver oil Oil 10 ml PO DAILY Qty: 473 0RF (DME) [Sauna therapy] 0 .Route .MEDSUPPLY Qty: 30 12RF Dose Instruction: As directed Rx Instructions: 30 minutes per session 20 sessions every 4-6 weeks for a total of 240 sessions. (DME) massage therapy 0 .Route .MEDSUPPLY Qty: 1 12RF Dose Instruction: As directed Rx Instructions: One session every 2 weeks as needed to help control pain due to gout and osteoarthritis. ondansetron 4 mg tablet,disintegrating 4 mg PO TID-QID PRN (Reason: nausea and vomiting) Qty: 10 0RF Referrals: Antonia Mancilla DO [Primary Care Provider] - Stand Alone Forms: Patient Portal/API
[2024-02-21] MEDS: TET,DIPH,PERTUSS(ACELL),VAC/PF 0.5 ML SYRINGE IM (18:13)
[2024-02-21] MEDS: AMOXICILLIN/CLAV 875/125 MG 1 TAB PO (18:13)
[2024-02-21] MEDS: ACETAMINOPHEN 325 MG TABLET 975 MG PO (18:13)
[2024-02-21 18:26] VITALS: BP 188/75; PULSE 62; RESP 18; TEMP 36.9; O2SAT 98
== END 2024-02-21 18:26 | disposition home or self-care (01) ==
PROVIDERS: Emergency Provider Emergency Medicine; Family Provider Family Medicine; PCP Family Medicine
DX: S61.452A Open bite of left hand, initial encounter (principal); W54.0XXA Bitten by dog, initial encounter; Z23 Encounter for immunization
CPT/HCPCS: 73130; 90471; 99283; 90715

== ENCOUNTER → 2025-09-11 14:28 | Outpatient (CLI) | payer MEDICARE, SELFPAY ==
--- NOTE | 2025-09-11 14:29 | DI.MG.S_ITS ---
MM screening mammo BI: 09/11/2025. BI-RADS: 2 CLINICAL: 65-year old female for bilateral screening mammogram. Tyrer-Cuzick lifetime risk of 10.8%. No personal or first-degree family history of breast cancer. The patient had a prior right breast biopsy. PRIOR EXAMS 07/21/2023, 11/24/2021, 10/27/2021, 08/25/2021, MAMMOGRAPHY TECHNIQUE: 2D and 3D (tomosynthesis) digital mammographic views obtained, with additional images as needed for full coverage. Current study was also evaluated with a Computer Aided Detection (CAD) system. DENSITY C. The breasts are heterogeneously dense, which may obscure small masses. MAMMOGRAPHY FINDINGS Right: Biopsy marker present on the right. There are no suspicious masses, calcifications, or other findings in the breast. Left: No suspicious mass, asymmetry, microcalcification, or other abnormality seen. IMPRESSION: Right * No evidence of malignancy with benign findings. Left * No evidence of malignancy. RECOMMENDATIONS Bilateral * Annual screening mammography. OVERALL ASSESSMENT CATEGORY BI-RADS-2: Benign. The [employer] recommends annual screening mammography beginning at age 40 for women with average risk of breast cancer. ELECTRONICALLY SIGNED: Jose Mcdonald M.D. on 09/11/2025 at 10:22:31 PM PT Interpreting Station ID: [id number]
== END ==
LOC: MAMMO 14:29
PROVIDERS: PCP Family Medicine; Referring Provider Family Medicine; Visit Provider Family Medicine
DX: Z12.31 Encounter for screening mammogram for malignant neoplasm of breast (principal); R92.333 Mammographic heterogeneous density, bilateral breasts
CPT/HCPCS: 77063; 77067

== ENCOUNTER → 2025-11-06 10:50 | Outpatient (CLI) | payer MEDICARE, SELFPAY | PROVIDERS: PCP Family Medicine; Visit Provider Family Medicine | DX: R10.20 Pelvic and perineal pain unspecified side (principal) | CPT/HCPCS: 87491; 87563; 87591 ==